=== PATIENT | female | born 1955 | race Caucasian/White ===

== ENCOUNTER 2017-03-28 05:36 | Inpatient (IN) | payer BC ==
[~2017-03-28] VITALS: Ht 160 cm; Wt 69.1 kg
--- NOTE | ~2017-03-28 | OR ---
ADMIT: 03/28/2017 RM/LOC: 525 [facility] MR#: [id number] [address] [id number] [facility] [place] [address] Operative/Delivery Room Report SEX: F AGE: 61 : 1955 SURGERY DATE: 03/28/2017 SURGEON: Walter Peña MD PREOPERATIVE DIAGNOSIS: Chronic intermittent diverticulitis. POSTOPERATIVE DIAGNOSIS: Chronic intermittent diverticulitis. FINAL PATHOLOGY: Pending. PROCEDURES: 1. Laparoscopic sigmoid colon resection. 2. Open primary repair of an umbilical hernia. SQL SERVER DBA: Pop Santiago MD who was necessary for adequate exposure, retraction, and completion of this case. ANESTHESIA: General endotracheal tube anesthesia. ESTIMATED BLOOD LOSS: 30 mL or less. INDICATION FOR PROCEDURE: Please see H and P. DESCRIPTION OF PROCEDURE: After the risks, benefits, possible complications, and alternatives had been explained, and informed consent had been obtained, the patient was taken back to the operating room. Underwent general endotracheal anesthesia. She was placed in stirrups. Surgical field was prepped and draped in sterile manner. An infraumbilical incision was made. The Veress needle was inserted, actually through the area of this small umbilical hernia. The abdomen was insufflated with CO2. A 5 mm port was placed. I then placed a 12 mm right lower quadrant and above this a 5 mm port. One more 5 mm left-sided port. The patient was placed in Trendelenburg position, get the small bowel up and out of the pelvis. There was not a lot of bowel adhered from this chronic diverticulitis, but you could see a couple of these diverticula and I made sure I picked the area down below the lowest one. Scored the mesentery first around the right side. Slowly worked some on the left side, got a window there and just kept taking the mesentery until I had the bowel cleaned off. I felt to where I could bring an Endo-SHEA stapler across this. One firing of the Endo-SHEA 45 load was placed. I then took more of the mesentery and its supply up to a more proximal area in the sigmoid colon. I did free up some of the lateral line of Toldt along the descending colon, sigmoid colon so that would reach down nicely. I did not have to take the inferior mesenteric main vessel. Once I had things adequately dissected out, I switched sides with Dr. Santiago. I made an incision in left lower quadrant. The wound retractor was placed once we had the incision opened up large enough to bring the piece of colon up. Then extracorporeally now, picked an area proximally where we came across with an automatic pursestring suture and removed the specimen. I chose a 29 mm stapler and anvil was placed and this was tied around with the pursestring suture. Cleaned off the ADMIT: 03/28/2017 RM/LOC: 525 [facility] MR#: [id number] [address] [place] [id number] [facility] [place] [address] Operative/Delivery Room Report SEX: F AGE: 61 : 1955 proximal bowel then to where we would have a good area for anastomosis and it was returned to the abdominal cavity. We changed gloves, removed the wound protector. Closed with a couple layers of 0 PDS suture in the left lower quadrant. Dr. aSntiago then went below, placed a couple of dilators and then ultimately the stapler up. We brought it out through the end of our staple line, docked the anvil, and created an end-to-end staple anastomosis using the Endo-SHEA stapler 29 mm. Two good rings of tissue, air tested under water and it appeared good. Everything laid there nicely, fit there quite nicely. I did not see any issues or problems. Cleaned up the irrigation. I then injected 0.5% Marcaine for pain control into the incision sites. Closed the fascia of the right lower quadrant 12 mm port with an 0 Polysorb suture using the suture passer and then the ports were removed. I closed the skin with alvin except at the umbilical site. She had an umbilical hernia here with incarcerated preperitoneal fat and so I enlarged that incision, dissected the sac off the overlying umbilical skin down to the base and then closed that with 0 Ethibond suture in an interrupted fashion. Tacked down the umbilical skin and then closed with 4-0 Monocryl there. She tolerated the entire procedure well. She was extubated and taken to recovery room in stable and satisfactory condition. Walter Peña MD/ jasmine JOB #: [id number] CC: Walter Peña, Attending Physician Leilani Joyce, Family Physician
[2017-03-31] MEDS ORDERED: PROTONIX40 MG PO (20:41)
[2017-03-31] MEDS ORDERED: HYDROCHLOROTHIA25 MG PO (20:41)
[2017-03-31] MEDS ORDERED: TRANDATE DPS100 MG PO (20:41)
[2017-03-31] MEDS ORDERED: ZOCOR DPS20 MG PO (20:41)
[2017-03-31] MEDS ORDERED: CALTRATE-600 W600 MG PO (20:42)
[2017-03-31] MEDS ORDERED: VITAMIN D-32000 UNI1 PO (20:42)
[2017-03-31] MEDS ORDERED: FISH OIL 1,0001 EACH PO (20:42)
[2017-03-31] MEDS ORDERED: BIOTIN5 MG PO (20:43)
[2017-03-31] MEDS ORDERED: CLARITIN10 M2 PO (20:43)
[2017-03-31] MEDS ORDERED: ASPIRIN EC81 MG PO (20:43)
[2017-03-31] MEDS ORDERED: COMPAZINE DPS5 MG PO (20:44)
[2017-03-31] MEDS ORDERED: NORCO 5-325 TA1 EACH PO (20:44)
== END 2017-03-30 14:27 | disposition home or self-care (01) | DRG 330 ==
LOC: 5MS 05:36 → WOR 05:36 → 5MS 09:49
PROVIDERS: ADMIT Surgery
PROC: 0WQF0ZZ Repair Abdominal Wall, Open Approach (ICD-10-PCS; principal; 2017-03-28)
PROC: 0DBN4ZZ Excision of Sigmoid Colon, Percutaneous Endoscopic Approach (ICD-10-PCS; principal; 2017-03-28)
DX: K57.32 Diverticulitis of large intestine without perforation or abscess without bleeding (principal); K42.0 Umbilical hernia with obstruction, without gangrene; I10 Essential (primary) hypertension; K21.9 Gastro-esophageal reflux disease without esophagitis; E78.5 Hyperlipidemia, unspecified; Z85.820 Personal history of malignant melanoma of skin; Z87.891 Personal history of nicotine dependence